=== PATIENT | male | born 1995 | race Caucasian/White ===

== ENCOUNTER 2018-11-05 19:51 | Emergency (ER) | payer MEDICAID, OTHER ==
[~2018-11-05] VITALS: Ht 182.9 cm; Wt 63.1 kg
[~2018-11-05 19:51] MED LIST: AZIT250T PO; PRED20TA PO
[2018-11-05 20:05] VITALS: BP 123/79; PULSE 86; RESP 18; Ht 182.9 cm; Wt 63.1 kg
== END 2018-11-05 20:46 | disposition home or self-care (01) ==
LOC: FTE 19:51
DX: J02.9 Acute pharyngitis, unspecified (principal)
CPT/HCPCS: 99283